=== PATIENT | male | born 2000 | race Caucasian/White ===

== ENCOUNTER 2024-12-28 10:53 | Outpatient (CLI) | payer MEDICAID ==
[2024-12-28] VITALS (21 sets, daily range): BP systolic 118–147; BP diastolic 75–92; PULSE 81–95
== END 2024-12-28 23:59 | disposition home or self-care (01) ==
LOC: CARD DIAG 10:53
PROVIDERS: ATTEND Internal Medicine Interventional Cardiology
DX: R00.2 Palpitations (principal); R55 Syncope and collapse; R42 Dizziness and giddiness
CPT/HCPCS: 93660